=== PATIENT | female | born 1975 | race Caucasian/White ===

== ENCOUNTER 2016-06-30 18:44 | Emergency (ER) | payer OTHER ==
[2016-06-30 18:51] VITALS: RESP 16; TEMP 97.9; O2SAT 95
[2016-06-30] MEDS ORDERED: NS 1,000 ML IV ONE (19:01)
[2016-06-30 19:38] LABS: % IMMATURE GRANULYOCYTES 0.3 % (0.0-1.1); ABSOLUTE IMMATURE GRANULOCYTES 0.03 10^3/uL (0.00-0.10); ADD DIFF? NO; ADD MORPH? NO; ADD SCAN? NO; ATYPICAL LYMPHOCYTE FLAG 0 (0-99); FRAGMENT RBC FLAG 0 (0-99); HEMOGLOBIN 13.7 g/dL (12.6-16.3); LEFT SHIFT FLG 0 (0-99); LIPEMIA HEMOLYSIS FLAG 90 (0-99); MEAN CELL HEMOGLOBIN 29.1 pg (27.9-34.1); MEAN CELL HEMOGLOBIN CONCENTR. 34.3 g/dL (32.4-36.7); MEAN CELL VOLUME 85.1 fL (81.5-99.8); MEAN PLATELET VOLUME 8.7 fL (8.7-11.7); PLATELET CLUMPS FLAG 0 (0-99); PLATELET COUNT 421 10^3/uL (150-400); RED CELL DISTRIBUTION WIDTH 13.7 % (11.5-15.2)
[2016-06-30 19:54] LABS: ANION GAP 13 mEq/L (8-16); CALCIUM 9.5 mg/dL (8.5-10.4); CARBON DIOXIDE 23 mEq/l (22-31); CHLORIDE 104 mEq/L (97-110); CREATININE 0.6 mg/dL (0.6-1.0); GLOMERULAR FILTRATION RATE > 60; GLUCOSE 90 mg/dL (70-100); SODIUM 140 mEq/L (134-144)
[2016-06-30 20:03] LABS: APTT 25.4 SEC (23.0-38.0); INR 0.98 (0.83-1.16); PROTIME(PATIENT) 12.9 SEC (12.0-15.0)
--- NOTE | 2016-06-30 20:12 | EDPHY ---
H & P Stated Complaint: had HSG procedure 06/29, now c/o heavy VB, started today at 1500 Time Seen by Provider: 06/30/16 19:00 HPI/ROS: CHIEF COMPLAINT: Vaginal bleeding, brief dizziness HISTORY OF PRESENT ILLNESS: The patient is a 40 y/o female, with a history of uterine fibroids, complaining of vaginal bleeding onset today around 15:30. She had a hysterosalpingogram and transvaginal ultrasound performed yesterday. The ultrasound caused a small amount of bleeding, but she felt normal after the HSG. She notes she was just finishing her menstrual period yesterday. This afternoon she suddenly began bleeding and passed several clots. She saturated one pad over a 3-hour period, but the flow has been decreasing for the last 1-2 hours. She came into the ED because she began to feel a little dizzy. She is feeling normal at this time. No abdominal pain. REVIEW OF SYSTEMS: A 10 point review of systems was performed and is negative with the exception of the elements mentioned in the history of present illness. PHYSICAL EXAM: General Appearance: Alert, well hydrated, appropriate, and non-toxic appearing. Head: Atraumatic without scalp tenderness or obvious injury Eyes: Pupils equal, round, reactive to light and accommodation, EOMI, no trauma , no injection. Ears: Clear bilaterally, no perforation, normal landmarks Nose: Atraumatic, no rhinorrhea, clear. Throat: There is no erythema or exudates, no lesions, normal tonsils, mucus membranes moist. Neck: Supple, 2+ carotid upstroke, non-tender, no lymphadenopathy. Respiratory: No retractions, no distress, no wheezes, and no accessory muscle use. Lungs are clear to auscultation bilaterally. Cardiovascular: Regular rate and rhythm, no murmurs, rubs, or gallops. Bilateral carotid, radial, dorsalis pedis, and posterior tibial pulses intact. Good capillary refill all extremities. Gastrointestinal: Abdomen is soft, non-tender, non-distended, no masses, no rebound, no guarding, no peritoneal signs. Musculoskeletal: Normal active ROM of all extremities, atraumatic. Neurological: Alert, appropriate, and interactive. The patient has normal DTRs and non-focal cranial nerves, motor, sensory, and cerebellar exam. Skin: No rashes, good turgor, no nodules on palpation. PAST MEDICAL HISTORY: uterine fibroids, hysterosalpingogram SOCIAL HISTORY: Lives in [place]. Works at [employer]. Fertility: Dr. Goldman in [place] DIAGNOSTICS/PROCEDURES/CRITICAL CARE TIME: Study: Uterus ultrasound Indication: Vaginal bleeding Results: US scan of the uterus was obtained. The results of the study are 1 clot low in the uterus, 2 fibroids, 1 large. The study was read by the radiologist, Dr. Hill. I viewed the images myself on the PACS system. DIFFERENTIAL DIAGNOSIS: The differential diagnosis for the patient's vaginal bleeding included but was not limited to ectopic , menses, miscarriage , and dysfunctional uterine bleeding. MEDICAL DECISION MAKING: This is a healthy 40 y/o female presenting with a 4-5 hour history of heavy vaginal bleeding and passing clots. She has a history of fibroids and had both a transvaginal US and HSG performed yesterday without issue. She is at the end of her menstrual cycle. Plan for uterus US. US shows 1 low uterine clot and [address] Hill. I discussed these results with the patient. She will be discharged on oral TXA for 5 days if she begins bleeding heavily again and referral to obgyn for follow up on Saturday. She is comfortable with this plan. Return precautions given. - Personal History LMP (Females 10-55): 1-7 Days Ago Current Tetanus/Diphtheria Vaccine: Unsure Current Tetanus Diphtheria and Acellular Pertussis (TDAP): Unsure - Medical/Surgical History Hx Asthma: No Hx Chronic Respiratory Disease: No Hx Diabetes: No Hx Cardiac Disease: No Hx Renal Disease: No Hx Cirrhosis: No Hx Alcoholism: No Hx HIV/AIDS: No Hx Splenectomy or Spleen Trauma: No Other PMH: left breast lumpectomy - Social History Smoking Status: Never smoked Constitutional: Initial Vital Signs Temperature (C) 36.6 C 06/30/16 18:46 Heart Rate 76 06/30/16 18:46 Respiratory Rate 16 06/30/16 18:46 Blood Pressure 143/83 H 06/30/16 18:46 O2 Sat (%) 95 06/30/16 18:46 O2 Delivery Mode Room Air Allergies/Adverse Reactions: No Known Allergies Allergy (Unverified 06/30/16 18:45) Home Medications: Medication Instructions Recorded NK [No Known Home Meds] 06/30/16 Medical Decision Making - Data Points Laboratory Results: Laboratory Results 06/30/16 19:25 06/30/16 19:25 06/30/16 19:25 WBC 10.03 H 10^3/uL (3.80-9.50) RBC 4.70 10^6/uL (4.18-5.33) Hgb 13.7 g/dL (12.6-16.3) Hct 40.0 % (38.0-47.0) MCV 85.1 fL (81.5-99.8) MCH 29.1 pg (27.9-34.1) MCHC 34.3 g/dL (32.4-36.7) RDW 13.7 % (11.5-15.2) Plt Count 421 H 10^3/uL (150-400) MPV 8.7 fL (8.7-11.7) Neut % (Auto) 66.2 % (39.3-74.2) Lymph % (Auto) 23.0 % (15.0-45.0) [place] % (Auto) 6.4 % (4.5-13.0) Eos % (Auto) 3.4 % (0.6-7.6) Baso % (Auto) 0.7 % (0.3-1.7) Nucleat RBC Rel Count 0.0 % (0.0-0.2) Absolute Neuts (auto) 6.64 H 10^3/uL (1.70-6.50) Absolute Lymphs (auto) 2.31 10^3/uL (1.00-3.00) Absolute Monos (auto) 0.64 10^3/uL (0.30-0.80) Absolute Eos (auto) 0.34 10^3/uL (0.03-0.40) Absolute Basos (auto) 0.07 10^3/uL (0.02-0.10) Absolute Nucleated RBC 0.00 10^3/uL (0-0.01) Immature Gran % 0.3 % (0.0-1.1) Immature Gran # 0.03 10^3/uL (0.00-0.10) PT 12.9 SEC (12.0-15.0) INR 0.98 (0.83-1.16) APTT 25.4 SEC (23.0-38.0) Sodium 140 mEq/L (134-144) Potassium 4.0 mEq/L (3.5-5.2) Chloride 104 mEq/L (97-110) Carbon Dioxide 23 mEq/l (22-31) Anion Gap 13 mEq/L (8-16) BUN 10 mg/dL (7-23) Creatinine 0.6 mg/dL (0.6-1.0) Estimated GFR > 60 Glucose 90 mg/dL (70-100) Calcium 9.5 mg/dL (8.5-10.4) Medications Given: Discontinued Medications Sodium Chloride (Ns) 1,000 mls @ 0 mls/hr IV ONCE ONE PRN Reason: Wide Open Stop: 06/30/16 19:02 Last Admin: 06/30/16 19:31 Dose: 1,000 mls Departure - Departure Disposition: Home, Routine, Self-Care Clinical Impression: Dysfunctional uterine bleeding Instructions: Dysfunctional Uterine Bleeding (ED), Uterine Fibroids (ED) Additional Instructions: 1. Use TXA as prescribed if you develop heavy vaginal bleeding again. 2. Follow up with your obgyn on Saturday. 3. Return to the ED for severe pain, uncontrollable bleeding, fainting, or other worsening of condition. Referrals: Alondra Garcia MD [Primary Care Provider] - As per Instructions Ni Devi MD [Medical Doctor] - As per Instructions Report Scribed for: Merlin Mann Report Scribed by: Dian Foy Date of Report: 06/30/16 Time of Report: 20:12
--- NOTE | 2016-06-30 20:37 | US ---
Pelvic Ultrasound (Transabdominal and Endovaginal) with color flow and spectral Doppler History: Pelvic pain. History of fibroids. Findings: The pelvis was first examined through a nondistended bladder from TRANSABDOMINAL approach. UTERUS: Cannot be delineated secondary to bowel gas. ADNEXA: No adnexal masses. The pelvis was then evaluated from ENDOVAGINAL approach after the bladder was emptied to better evalu ate the uterus and adnexa. UTERUS: Orientation: Anteverted. Masses: Numerous fibroids are present within the uterus. Dominant fibroid mid uterine body displacing endometrial stripe toward the left, 4.3 x 5.2 x 3.7 cm Pedunculated fibroid along the left-side of the uterine fundus, 4.1 x 2.6 x 2.7 cm. Additional smaller fibroids are seen elsewhere. Endometrium: Displaced toward the left measuring about 4 mm adjacent to the dominant fibroid. No foca l endometrial lesion is seen. However, in the lower uterine segment near the cervix there is a comple x hypoechoic structure that does not demonstrate internal color flow enhancement. This could represen t blood clot. ADNEXA: Normal. Small follicles are seen associated with each ovary. Right ovary size: 2.6 x 2 x 2.4 cm. Left ovary size: 4 x 2.3 x 2.2 cm Color flow and spectral Doppler: Normal color flow imaging with normal Doppler waveform bilaterally. Free fluid: None. Other findings:None. Impression: 1. Uterine fibroids with dominant fibroid in the mid uterine body displacing the endometrial stripe t o the left as well as pedunculated fibroid on the left an additional smaller fibroids noted. 2. Normal appearing ovaries. 3. Hypoechoic structure in the lower uterine segment near the cervix could represent a blood clot These findings were discussed by telephone with Dr. Merlin Mann at 2034 hrs.
[2016-06-30 20:58] VITALS: BP 126/70; PULSE 69
== END 2016-06-30 20:57 | disposition home or self-care (01) ==
DX: N93.8 Other specified abnormal uterine and vaginal bleeding (principal)

== ENCOUNTER → 2017-06-04 | Outpatient (CLI) | payer OTHER | LOC: FIMAGING 05-27 15:26 | PROVIDERS: ATTEND Internal Medicine | DX: Z12.31 Encounter for screening mammogram for malignant neoplasm of breast (principal) | CPT/HCPCS: G0202 ==